=== PATIENT | female | born 1955 | race Two or more races ===

== ENCOUNTER 2018-12-01 21:55 | Observation (INO) | payer OTHER ==
[2018-12-01 22:08] VITALS: BMI 22.9
--- NOTE | 2018-12-02 00:16 | PDOC ---
History of Present Illness - General Chief Complaint: Chest Pain Stated Complaint: Revisit,Radiology Variance Time Seen by Provider: 12/02/18 00:03 - History of Present Illness Initial Comments: 12/02/18 00:15 62 yo F with h/o HTN, Vertigo, Migraines, who p/w chest pain. Patient reports 3 months of intermittent, sharp, left sided chest pain, with radiation to left arm /shoulder, and back. Pain is non exertional, and sporadic, lasting for seconds and resolving spontaneously. Occurs at rest and with movement. Also endorses intermittent lightheadedness. + Nausea without vomiting x 3 months. Patient seen at urgent care and told that she had "tortorous aorta." Patient denies JUNIOR, palpitations, cough, wheezing, leg swelling/pain, N/V, F,C, SOB, urinary complaints, abdominal pain, diarrhea, constipation, hematuria, BPR , lightheadedness, weakness, sensory changes. PMHx: as noted above. Denies h/o ACS/GA, stent placement, CABG, abnml stress test. Denies h/o PE/DVT. ROS: as noted SHx: Denies Etoh, IVDA, tobacco use. Allergies: NKDA Cardiology: Dr. Woody PMD: Solange Horne Past History - Past Medical History Allergies/Adverse Reactions: Allergies Allergy/AdvReac Type Severity Reaction Status Date / Time No Known Allergies Allergy Verified 12/01/18 22:08 Home Medications: Ambulatory Orders Amlodipine Besylate [Norvasc -] 10 mg PO DAILY 07/05/13 Metaxalone 400 mg PO TID 07/09/15 Metoclopramide HCl [Reglan] 10 mg PO TID #20 tablet 07/09/15 Metoprolol Succinate [Toprol XL -] 12.5 mg PO DAILY 07/09/15 Oxycodone HCl/Acetaminophen [Percocet 5/325 -] 1 tab PO Q6H #20 tablet 07/09/15 Pravastatin Sodium 20 mg PO DAILY 07/09/15 Sumatriptan Succinate [Imitrex -] 25 mg PO DAILY PRN 07/09/15 COPD: No HTN: Yes Hypercholesterolemia: Yes - Suicide/Smoking/Psychosocial Hx Smoking Status: No Smoking History: Never smoked Number of Cigarettes Smoked Daily: 0 Hx Alcohol Use: No Drug/Substance Use Hx: No Review of Systems - Review of Systems Comments:: 12/02/18 00:15 GENERAL/CONSTITUTIONAL: No fever or chills. No weakness. HEAD, EYES, EARS, NOSE AND THROAT: No change in vision. No ear pain or discharge. No sore throat. CARDIOVASCULAR: + chest pain. No shortness of breath RESPIRATORY: No cough, wheezing, or hemoptysis. GASTROINTESTINAL: No nausea, vomiting, diarrhea or constipation. GENITOURINARY: No dysuria, frequency, or change in urination. MUSCULOSKELETAL: No joint or muscle swelling or pain. No neck or back pain. SKIN: No rash NEUROLOGIC: No headache, vertigo, loss of consciousness, or change in strength/ sensation. ENDOCRINE: No increased thirst. No abnormal weight change HEMATOLOGIC/LYMPHATIC: No anemia, easy bleeding, or history of blood clots. ALLERGIC/IMMUNOLOGIC: No hives or skin allergy. *Physical Exam - Vital Signs Last Vital Signs Temp Pulse Resp BP Pulse Ox 98.0 F 116 H 18 160/89 98 12/01/18 22:04 12/01/18 22:04 12/01/18 22:04 12/01/18 22:04 12/01/18 22:04 - Physical Exam Comments: 12/02/18 00:16 GENERAL: Awake, alert, and fully oriented, in no acute distress HEAD: No signs of trauma, normocephalic, atraumatic EYES: PERRLA, EOMI, sclera anicteric, conjunctiva clear ENT: Hearing grossly normal, nares patent, oropharynx clear without exudates. Moist mucosa NECK: Normal ROM, supple, no lymphadenopathy, JVD, or masses LUNGS: No distress, speaks full sentences, clear to auscultation bilaterally HEART: Regular rate and rhythm, normal S1 and S2, no murmurs, rubs or gallops, peripheral pulses normal and equal bilaterally. ABDOMEN: + Epigastric ttp. Soft, nontender, normoactive bowel sounds. No guarding, no rebound. No masses. Neg CVA ttp. EXTREMITIES : Normal inspection, Normal range of motion, no edema. No clubbing or cyanosis. NEUROLOGICAL: Cranial nerves II through XII grossly intact. Normal speech, normal gait, no focal sensorimotor deficits SKIN: Warm, Dry, normal turgor, no rashes or lesions noted Moderate Sedation - Procedure Monitoring Vital Signs: Procedure Monitoring Vital Signs Temperature 98.0 F 12/01/18 22:04 Pulse Rate 116 H 12/01/18 22:04 Respiratory Rate 18 12/01/18 22:04 Blood Pressure 160/89 12/01/18 22:04 O2 Sat by Pulse Oximetry (%) 98 12/01/18 22:04 Heart Score/ECG Review - History History: Slightly suspicious - Electrocardiogram EKG: Non specific repolarization disturbance - Age Age: >/= 65 - Risk Factors Risk Factors Heart Score: Yes Hx Hypercholesterolemia, Yes Hx Hypertension, Yes Positive family hx of cardiac disease Based on the list above the patient has:: >/=3 risk factors or Hx atherosclerotic disease - Troponin Troponin: </= normal limit - Score Heart Score - Total: 5 ED Treatment Course - LABORATORY CBC & Chemistry Diagram: 12/02/18 00:49 12/02/18 00:49 Medical Decision Making - Medical Decision Making 12/02/18 01:18 62 yo F with h/o HTN, Vertigo, Migraines, who p/w 3 months of intermittent, sharp, left sided chest pain, with radiation to left arm/shoulder, and back. + intermittent lightheadedness, and nause w/out vomiting. Vitals wnl, AF, A&Ox3. ACS/GA r/o. Low risk PE Weils criteria. Will consider thoracic aorta aneurysm/ dissection, pericarditis, plerual effusion, pancreatitis, esophagitis, gastritis. ED Course: 12/02/18 01:21 EKG: NSR with absent BHUMI, STD. + LVH, and slight LAD. Absent Q waves, nml R wave progression. 12/02/18 02:47 CTA CHEST r/o Ao dissection CBC,CMP: Unremarkable Trop: Neg 12/02/18 02:50 Heart score 5 Plan to admit tele/obs. Elevated heart score. 12/02/18 04:52 Dr. Horne answering service contacted on second attempt. Awaiting call back. *DC/Admit/Observation/Transfer Diagnosis at time of Disposition: Chest pain at rest - Discharge Dispostion Condition at time of disposition: Stable Decision to Admit order: Yes - Referrals Referrals: Solange Horne MD [Primary Care Provider] - - Patient Instructions Printed Discharge Instructions: DI for Chest Pain Additional Instructions: Please return to the emergency department with any new or worsening symptoms or concerns. Please follow up with your primary care physician within 72 hours. - Post Discharge Activity - Attestations Physician Attestion: 12/02/18 00:16 I attest to the information provided in this note.
[2018-12-02 01:23] LABS: BASO % 0.1 % (0-2.0); HEMATOCRIT 39.2 % (32.4-45.2); HEMOGLOBIN 13.5 GM/dL (10.7-15.3); LYMPH % 12.5 % (8-40); MCH 28.2 pg (25.7-33.7); MCHC 34.3 g/dl (32.0-36.0); MEAN CELL VOLUME 82.2 fl (80-96); MEAN PLT VOLUME 8.1 fl (7.5-11.1); NEUT % 84.4 % (42.8-82.8); PLATELET COUNT 317 K/MM3 (134-434); RBC 4.77 M/mm3 (3.60-5.2); RDW 13.9 % (11.6-15.6); WHITE BLOOD COUNT 11.5 K/mm3 (4.0-10.0)
[2018-12-02 02:08] LABS: ALBUMIN 4.4 g/dl (3.4-5.0); ALK PHOS 102 U/L (45-117); ANION GAP 7 MMOL/L (8-16); BILIRUBIN,TOTAL 0.4 mg/dL (0.2-1); BLOOD UREA NITROGEN 11 mg/dL (7-18); CALCIUM 9.7 mg/dL (8.5-10.1); CHLORIDE 105 mmol/L (98-107); CO2 29 mmol/L (21-32); CREATININE 0.7 mg/dL (0.55-1.3); GLUCOSE,RANDOM 118 mg/dL (74-106); POTASSIUM 3.7 mmol/L (3.5-5.1); SGOT/AST 13 U/L (15-37); SGPT/ALT 25 U/L (13-61); SODIUM 141 mmol/L (136-145)
--- NOTE | 2018-12-02 02:47 | PDOC ---
Attending Attestation - ED Attending Attestation I have performed the following: I have examined & evaluated the patient, The case was reviewed & discussed with the resident, I agree w/resident's findings & plan - HPI HPI: 12/02/18 03:11 The patient is a year 62 old female, with a significant past medical history of HTN, vertigo, migraines, who presents to the emergency department with, 3 months of intermittent chest pain. She describes her pain as intermittent, left sided, sharp, and radiating to her left arm and back. Patient also notes the pain has an associated nausea and lightheadedness. She was recently seen by her agriculture extension specialist Dr. Parra who advised her to report to the ED for further evaluation. Allergies: NKA Past surgical history: None reported. Social history: Nonsmoker. Denies EtOH use and recreational drug use. Primary Care Physician: Dr. Horne Hot Knife Foxing Cutter: Dr. Parra <Marquita Gonzalez - Last Filed: 12/02/18 03:11> - Resident Resident Name: Justin Mcintyre - Physicial Exam PE: 12/02/18 03:18 Agree with resident exam - Medical Decision Making 12/02/18 03:18 62-year-old female for evaluation of chest pain Plan for CTA of the chest due to pain radiating to the back though clinically dissection is unlikely Patient will be admitted for observation to medical service for serial enzymes Impression left-sided chest pain <Laura Rizvi - Last Filed: 12/02/18 03:27> Attestations - Attestations 12/02/18 03:11 Documentation prepared by Marquita Gonzalez, acting as chief medical officer for Laura Rizvi DO. <Marquita Gonzalez - Last Filed: 12/02/18 03:11>
--- NOTE | 2018-12-02 05:18 | PDOC ---
*Physical Exam - Vital Signs Last Vital Signs Temp Pulse Resp BP Pulse Ox 98.0 F 116 H 18 160/89 98 12/01/18 22:04 12/01/18 22:04 12/01/18 22:04 12/01/18 22:04 12/01/18 22:04 - Physical Exam Comments: 12/02/18 05:10 Care endorsed to me by Dr. Mcintyre at the end of my shift. Patient is a 62 YOF who was originally seen at urgent care, sent to the ED by Dr. Parra (her plastics tooling engineer) for left chest pain and numbness. Initial cardiac w/u is negative , now pending chest CTA r/o aneurysmal pathology/dissection. Otherwise is stable. ED Treatment Course - LABORATORY CBC & Chemistry Diagram: 12/02/18 00:49 12/02/18 00:49 - ADDITIONAL ORDERS Additional order review: Laboratory Results 12/02/18 12/02/18 12/02/18 00:49 00:49 00:49 Sodium 141 Potassium 3.7 Chloride 105 Carbon Dioxide 29 Anion Gap 7 L BUN 11 Creatinine 0.7 Creat Clearance w eGFR > 60 Random Glucose 118 H Calcium 9.7 Total Bilirubin 0.4 AST 13 L ALT 25 Alkaline Phosphatase 102 Creatine Kinase 93 Troponin I 0.02 Total Protein 8.0 Albumin 4.4 Lipase 72 L 12/02/18 00:49 RBC 4.77 MCV 82.2 MCHC 34.3 RDW 13.9 MPV 8.1 Neutrophils % 84.4 H D Lymphocytes % 12.5 D Monocytes % 3.0 L Eosinophils % 0.0 D Basophils % 0.1 Medical Decision Making - Medical Decision Making 12/02/18 04:[address] Solange Horne's practice for admission. 12/02/18 05:[address] Solange Horne's practice for admission. 12/02/18 05:[address] Solange Horne's practice for admission. 12/02/18 05:58 Repeat EKG done 05:43 shows NSR, rate 80, normal axis and intervals, no ischemic ST-T changes, diffuse TW flattening 12/02/18 06:11 Another call was placed to Dr. Solange Horne, waited 40 min. Per ED protocol the admission will got to Yen. I spoke with Yen dominguez, patient admitted to Dr. Nettles. Decision to Admit order corrected. Patient still waiting for CTA (was brought over at 5:30 am but the scanner was broken at that point). seed technician is over in the ED now doing X-rays. *DC/Admit/Observation/Transfer Diagnosis at time of Disposition: Chest pain at rest - Discharge Dispostion Condition at time of disposition: Guarded Decision to Admit order: Yes - Referrals Referrals: Solange Horne MD [Primary Care Provider] - - Patient Instructions Printed Discharge Instructions: DI for Chest Pain Additional Instructions: Please return to the emergency department with any new or worsening symptoms or concerns. Please follow up with your primary care physician within 72 hours. - Post Discharge Activity
[2018-12-02] MEDS ORDERED: SUMAtriptan SUCCINATE 25 MG TABLET PO PRN (06:34)
--- NOTE | 2018-12-02 06:43 | HP ---
CHIEF COMPLAINT: PCP:Dr. Horne Cardiology: Dr. Love HISTORY OF PRESENT ILLNESS: 62 year old female with history of hypertension(on meds), hyperlipidemia, vertigo and migraines who presents to ER with complaints of chest heaviness at rest with radiation to her left arm and upper back which has been ongoing for the past 3 days. Chest pain is nonreproducible. She reports chest pain is associated with shortness of breath. She denies nausea, vomiting or diaphoresis. She reports she had a stress test 2 years ago and was told it was normal. She denies fever, hemoptysis, syncopy, dizziness or palpitations. In the ER two troponins are negative. EKG with no signs of acute ischemia (no acute st elevations or T wave inversions. CT scan of chest, abdomen and pelvis is pending. Upon presentation she had tacycardia. Currently she denies symptoms of chest discomfort and is nondyspneic. Oxygen saturation is normal. Recent Travel:Denies PAST MEDICAL HISTORY: Hypertension Hyperlipidemia Migraines Vertigo PAST SURGICAL HISTORY: Denies Social History: Smoking:Denies Alcohol:Denies Drugs: Denies Family History: Allergies No Known Allergies Allergy (Verified 12/01/18 22:08) HOME MEDICATIONS: Home Medications Medication Instructions Recorded Amlodipine Besylate [Norvasc -] 10 mg PO DAILY 07/05/13 Metaxalone 400 mg PO TID 07/09/15 Metoclopramide HCl [Reglan] 10 mg PO TID #20 tablet 07/09/15 Metoprolol Succinate [Toprol XL -] 12.5 mg PO DAILY 07/09/15 Oxycodone HCl/Acetaminophen 1 tab PO Q6H #20 tablet 07/09/15 [Percocet 5/325 -] Pravastatin Sodium 20 mg PO DAILY 07/09/15 Sumatriptan Succinate [Imitrex -] 25 mg PO DAILY PRN 07/09/15 REVIEW OF SYSTEMS CONSTITUTIONAL: Absent: fever, chills, diaphoresis, generalized weakness, malaise, loss of appetite, weight change HEENT: Absent: rhinorrhea, nasal congestion, throat pain, throat swelling, difficulty swallowing, mouth swelling, ear pain, eye pain, visual changes CARDIOVASCULAR: Absent: chest and back pain, syncope, palpitations, irregular heart rate, lightheadedness, peripheral edema RESPIRATORY: Absent: cough, shortness of breath, dyspnea with exertion, orthopnea, wheezing, stridor, hemoptysis GASTROINTESTINAL: Absent: abdominal pain, abdominal distension, nausea, vomiting, diarrhea, constipation, melena, hematochezia GENITOURINARY: Absent: dysuria, frequency, urgency, hesitancy, hematuria, flank pain, genital pain MUSCULOSKELETAL: Absent: myalgia, arthralgia, joint swelling, back pain, neck pain SKIN: Absent: rash, itching, pallor HEMATOLOGIC/IMMUNOLOGIC: Absent: easy bleeding, easy bruising, lymphadenopathy, frequent infections ENDOCRINE: Absent: unexplained weight gain, unexplained weight loss, heat intolerance, cold intolerance NEUROLOGIC: Absent: headache, focal weakness or paresthesias, dizziness, unsteady gait, seizure, mental status changes, bladder or bowel incontinence PSYCHIATRIC: Absent: anxiety, depression, suicidal or homicidal ideation, hallucinations. PHYSICAL EXAMINATION Vital Signs - 24 hr 12/01/18 12/02/18 22:04 02:05 Temperature 98.0 F Pulse Rate 116 H Pulse Rate [ 90 Apical] Respiratory 18 14 Rate Blood Pressure 160/89 Blood Pressure 150/86 [Right Arm] O2 Sat by Pulse 98 97 Oximetry (%) GENERAL: awake, alert, and fully oriented, in no acute distress HEAD: normal with no signs of trauma EYES: pupils equal, round and reactive to light, extraocular movements intact, sclera anicteric, conjunctiva clear EARS, NOSE, THROAT: ears normal, nares patent, oropharynx clear without exudates. Moist mucous membranes NECK: normal range of motion, supple without lymphadenopathy, JVD, or masses LUNGS: breath sounds equal, clear to auscultation bilaterally, no wheezes, and no crackles, no accessory muscle use HEART: regular rate and rhythm, normal S1 and S2 without murmur ABDOMEN: soft, nontender, not distended, normoactive bowel sounds MUSCULOSKELETAL: normal range of motion at all joints. No bony deformities or tenderness UPPER EXTREMITIES: 2+ pulses, warm, well-perfused. No cyanosis. No clubbing. No peripheral edema LOWER EXTREMITIES: 2+ pulses, warm, well-perfused. No calf tenderness. No peripheral edema NEUROLOGICAL: normal speech. Normal gait PSYCHIATRIC: cooperative. Good eye contact. Appropriate mood and affect SKIN: Warm, dry, normal turgor, no rashes or lesions noted, normal capillary refill Laboratory Results - last 24 hr 12/02/18 12/02/18 12/02/18 00:49 00:49 00:49 WBC 11.5 H RBC 4.77 Hgb 13.5 Hct 39.2 MCV 82.2 MCH 28.2 MCHC 34.3 RDW 13.9 Plt Count 317 MPV 8.1 Absolute Neuts (auto) 9.7 H Neutrophils % 84.4 H D Lymphocytes % 12.5 D Monocytes % 3.0 L Eosinophils % 0.0 D Basophils % 0.1 Nucleated RBC % 0 Sodium 141 Potassium 3.7 Chloride 105 Carbon Dioxide 29 Anion Gap 7 L BUN 11 Creatinine 0.7 Creat Clearance w eGFR > 60 Random Glucose 118 H Calcium 9.7 Total Bilirubin 0.4 AST 13 L ALT 25 Alkaline Phosphatase 102 Creatine Kinase 93 Troponin I 0.02 Total Protein 8.0 Albumin 4.4 Lipase 12/02/18 12/02/18 00:49 04:40 WBC RBC Hgb Hct MCV MCH MCHC RDW Plt Count MPV Absolute Neuts (auto) Neutrophils % Lymphocytes % Monocytes % Eosinophils % Basophils % Nucleated RBC % Sodium Potassium Chloride Carbon Dioxide Anion Gap BUN Creatinine Creat Clearance w eGFR Random Glucose Calcium Total Bilirubin AST ALT Alkaline Phosphatase Creatine Kinase Troponin I 0.03 Total Protein Albumin Lipase 72 L ASSESSMENT/PLAN: 62 year old female with history of hypertension(on medications), hyperlipidemia , vertigo and migraines who presents with symptoms of chest heaviness at rest with radiation to her left arm and upper back which has been ongoing for the past 3 days associated with shortness of breath. She denied fever, hemoptysis, syncopy, dizziness or palpitations. On presentation to ER she had tachycardia. Atypical Chest Pain Two troponins are negative. EKG with no signs of acute ischemia (no acute st elevations or T wave inversions). CT scan of chest, abdomen and pelvis is pending to exclude aortic aneurysm/ hypertensive. Upon presentation she had tacycardia. Cxygen saturation is normal. Currently she denies symptoms of chest discomfort and is nondyspneic. Will add D-Dimer. Continue to trend troponins. Echocardiogram ordered to evaluate wall motion, valvular anatomy and LV function. Cardiology consulted - Dr. Love. Hypertension Hypertensive in ER. Continue metoprolol and amlodipine. Continue to monitor closely and adjust antihypertensives as needed. Hyperlipidemia Continue statin therapy. Mild Leukocytois with abnormal differential Patient remains afebrile. Check UA with urine culture. Patient currently denies chills or cough. Migraine Headaches Asymptomatic. Continue with sumetriptan. Visit type - Emergency Visit Emergency Visit: Yes ED Registration Date: 12/02/18 Care time: The patient presented to the Emergency Department on the above date and was hospitalized for further evaluation of their emergent condition. - New Patient This patient is new to me today: Yes Date on this admission: 12/02/18 - Critical Care Critical Care patient: No
--- NOTE | 2018-12-02 09:28 | CON.CARD ---
Consult Consult Specialty:: Cardiology Referred by:: Dr. Porter Reason for Consultation:: chest pain - History of Present Illness Chief Complaint: chest pain History of Present Illness: 62 yo F with h/o HTN, Vertigo, Migraines, who p/w chest pain. Patient reports 3 months of intermittent, sharp, left sided chest pain, with radiation to left arm /shoulder, and back. Pain is non exertional, and sporadic, lasting for seconds and resolving spontaneously. Occurs at rest and with movement. Also endorses intermittent lightheadedness. + Nausea without vomiting x 3 months. Patient seen at urgent care and told that she had "tortorous aorta." Patient denies JUNIOR, palpitations, cough, wheezing, leg swelling/pain, N/V, F,C, SOB, urinary complaints, abdominal pain, diarrhea, constipation, hematuria, BPR , lightheadedness, weakness, sensory changes. She had a stat CTA chest and abdomen in ER which showed no aneurysm, no dissection. Chronic lung nodule and atelectasis. Two sets of cardiac enzymes are negative. ECG showed NSR at 80bpm w/ LAE, no acute changes. - History Source History Provided By: Patient Limitations to Obtaining History: No Limitations - Past Medical History Cardio/Vascular: Yes: HTN, Hyperlipdemia Pulmonary: No: Asthma, Bronchitis, Cancer, COPD, O2 Dependent, Pneumonia, Previously Intubated, Pulmonary Embolus, Pulmonary Fibrosis, Sleep Apnea, Other Gastrointestinal: No: Ascites, Cancer, Constipation, Crohn's Disease, Diverticulitis, Diverticulosis, Esophageal Varices, Gastritis, GERD, GI Bleed, Hemorrhoids, Hiatal Hernia, Inflamatory Bowel Disease, Irritable Bowel Disease, Pancreatitis, Peptic Ulcer Disease, Ulcerative Colitis, Other Hepatobiliary: No: Cirrhosis, Cholelithiasis, Cholecystitis, Choledocholithiasis , Hepatitis A, Hepatitis B, Hepatitis C, Other Renal/: No: Renal Failure, Renal Inusuff, BPH, Cancer, Hematuria, Hemodialysis , Neurogenic Bladder, Renal Calculi, UTI, Other Reproductive: No: Ectopic , Endometriosis, Fibroids, PID, Polycystic Ovary Syndrome, Postmenopausal, Other - Alcohol/Substance Use Hx Alcohol Use: No - Smoking History Smoking history: Never smoked Aproximately how many cigarettes per day: 0 - Social History Usual Living Arrangement: With Spouse History of Recent Travel: No Home Medications - Allergies Allergies/Adverse Reactions: Allergies Allergy/AdvReac Type Severity Reaction Status Date / Time No Known Allergies Allergy Verified 12/01/18 22:08 - Home Medications Home Medications: Ambulatory Orders Amlodipine Besylate [Norvasc -] 10 mg PO DAILY 07/05/13 Metaxalone 400 mg PO TID 07/09/15 Metoclopramide HCl [Reglan] 10 mg PO TID #20 tablet 07/09/15 Metoprolol Succinate [Toprol XL -] 12.5 mg PO DAILY 07/09/15 Oxycodone HCl/Acetaminophen [Percocet 5/325 -] 1 tab PO Q6H #20 tablet 07/09/15 Pravastatin Sodium 20 mg PO DAILY 07/09/15 Sumatriptan Succinate [Imitrex -] 25 mg PO DAILY PRN 07/09/15 Family Disease History - Family Disease History Family History: Unremarkable Review of Systems Findings/Remarks: see HPI - Review of Systems Constitutional: reports: No Symptoms Eyes: reports: No Symptoms HENT: reports: No Symptoms Neck: reports: No Symptoms Cardiovascular: reports: Chest Pain Respiratory: reports: SOB on Exertion Gastrointestinal: reports: No Symptoms Genitourinary: reports: No Symptoms Breasts: reports: No Symptoms Reported Musculoskeletal: reports: No Symptoms Integumentary: reports: No Symptoms Neurological: reports: No Symptoms Endocrine: reports: No Symptoms Hematology/Lymphatic: reports: No Symptoms Psychiatric: reports: No Symptoms - Risk Factors Known Risk Factors: Yes: Hypercholesterolemia, Hypertension Vital Signs: Vital Signs Temperature 98.0 F 12/01/18 22:04 Pulse Rate 88 12/02/18 08:12 Respiratory Rate 16 12/02/18 08:12 Blood Pressure 145/87 12/02/18 08:12 O2 Sat by Pulse Oximetry (%) 100 12/02/18 08:12 Constitutional: Yes: No Distress, Calm Eyes: Yes: Conjunctiva Clear, EOM Intact HENT: Yes: Atraumatic, Normocephalic Neck: Yes: Trachea Midline Respiratory: Yes: CTA Bilaterally Gastrointestinal: Yes: Soft (NT, no aortic enlargement) Cardiovascular: Yes: Regular Rate and Rhythm JVD: No Carotid Bruit: No PMI: Non-Displaced Heart Sounds: Yes: S1, S2 Edema: No Neurological: Yes: Alert, Oriented - Other Data Labs, Other Data: CBC, BMP 12/02/18 00:49 12/02/18 00:49 Troponin, BNP 12/02/18 12/02/18 00:49 04:40 Troponin I 0.02 0.03 Troponin, BNP 12/02/18 12/02/18 00:49 04:40 Troponin I 0.02 0.03 Laboratory Tests 12/02/18 12/02/18 12/02/18 00:49 00:49 00:49 WBC 11.5 H Hgb 13.5 Plt Count 317 D-Dimer Sodium 141 Potassium 3.7 Creatinine 0.7 Troponin I 0.02 12/02/18 12/02/18 04:40 07:20 WBC Hgb Plt Count D-Dimer 396 Sodium Potassium Creatinine Troponin I 0.03 NSR 80 bpm, LAE, no acute changes Echo: Pending Imaging - Results Cat Scan: Image Reviewed EKG: Image Reviewed Problem List - Problems (1) Atypical chest pain Code(s): R07.89 - OTHER CHEST PAIN (2) Hypertension Code(s): I10 - ESSENTIAL (PRIMARY) HYPERTENSION Qualifiers: Hypertension type: essential hypertension Qualified Code(s): I10 - Essential (primary) hypertension (3) Combined hyperlipidemia Code(s): E78.2 - MIXED HYPERLIPIDEMIA Assessment/Plan IMP: Atypical CP HTN, chronic Hyperlipidemia REC: 1. MAURO 2. Echo 3. Tele 4. Stress MPI in AM
--- NOTE | 2018-12-02 11:56 | EKG ---
Test Reason : Blood Pressure : / mmHG Vent. Rate : 087 BPM Atrial Rate : 087 BPM P-R Int : 118 ms QRS Dur : 076 ms QT Int : 344 ms P-R-T Axes : 058 -05 002 degrees QTc Int : 413 ms NORMAL SINUS RHYTHM POSSIBLE LEFT ATRIAL ENLARGEMENT LEFT VENTRICULAR HYPERTROPHY NONSPECIFIC T WAVE ABNORMALITY ABNORMAL ECG WHEN COMPARED WITH ECG OF 09-JUL-2015 07:34, INVERTED T WAVES HAVE REPLACED NONSPECIFIC T WAVE ABNORMALITY IN INFERIOR LEADS NONSPECIFIC T WAVE ABNORMALITY NO LONGER EVIDENT IN LATERAL LEADS Confirmed by JOE ABURTO MD ([id number]) on 12/02/2018 11:56:08 AM Referred By: Confirmed By:JOE ABURTO MD
--- NOTE | 2018-12-02 11:56 | EKG ---
Test Reason : Blood Pressure : / mmHG Vent. Rate : 080 BPM Atrial Rate : 080 BPM P-R Int : 120 ms QRS Dur : 080 ms QT Int : 392 ms P-R-T Axes : 062 003 017 degrees QTc Int : 452 ms NORMAL SINUS RHYTHM POSSIBLE LEFT ATRIAL ENLARGEMENT NONSPECIFIC T WAVE ABNORMALITY ABNORMAL ECG WHEN COMPARED WITH ECG OF 02-DEC-2018 00:55, NO SIGNIFICANT CHANGE WAS FOUND Confirmed by CRISELDA LAWRENCE, JOE ([id number]) on 12/02/2018 11:55:47 AM Referred By: Confirmed By:JOE ABURTO MD
[2018-12-02] MEDS: amLODIPine BESYLATE 10 MG TABLET (FP) PO SCH (12:00)
--- NOTE | 2018-12-02 12:54 | ECHO ---
Name: TISH MURPHY Exam:Adult Echocardiogram Study Date: 12/02/2018 09:31 AM Age: 62 yrs Height: 58 in Weight: 110 lb BSA: 1.4 m2 MMode/2D Measurements & Calculations IVSd: 0.89 cm Ao root diam: 2.7 cm LVIDd: 3.6 cm LA dimension: 2.2 cm LVIDs: 2.0 cm LVPWd: 0.81 cm EDV(Teich): 55.7 ml ESV(Teich): 12.3 ml Doppler Measurements & Calculations MV E max gallito: 57.2 cm/sec AI P1/2t: 1372 msec MV A max gallito: 77.1 cm/sec MV E/A: 0.74 MV dec time: 0.09 sec AI max gallito: 224.0 cm/sec TR max gallito: 197.3 cm/sec AI max P.1 mmHg TR max P.8 mmHg AI dec slope: 47.8 cm/sec2 PI Vmax: 179.2 cm/sec Procedure A complete two-dimensional transthoracic echocardiogram was performed (2D, M-mode, Doppler and color flow Doppler). Left Ventricle The left ventricular size, thickness and function are normal. The left ventricular ejection fraction is normal. Ejection Fraction = 60-65%. The left ventricular wall motion is normal. Right Ventricle The right ventricle is normal in size and function. Atria Normal left and right atrial size and function. Mitral Valve There is trace mitral regurgitation. Tricuspid Valve There is trace tricuspid regurgitation. There was insufficient TR detected to calculate RV systolic p ressure. Aortic Valve No hemodynamically significant valvular aortic stenosis. No aortic regurgitation is present. Pulmonic Valve Trace pulmonic valvular regurgitation. Great Vessels The aortic root is normal size. Pericardium/Pleura There is no pericardial effusion. Interpretation Summary The left ventricular size, thickness and function are normal The right ventricle is normal in size and function. There is trace mitral regurgitation. There is trace tricuspid regurgitation. Trace pulmonic valvular regurgitation. MD Michael Swenson 12/02/2018 12:54 PM
[2018-12-02] MEDS: metoPROLOL SUCCINATE 25 MG TAB.SR.24H (FP) PO SCH (14:05)
[2018-12-02] MEDS ORDERED: ATORVASTATIN CA 10 MG TABLET (FP) PO SCH (22:00)
[2018-12-02 23:23] LABS: URINE APPEARANCE CLEAR; URINE BILIRUBIN NEGATIVE (<2.0 mg/dL); URINE COLOR COLORLESS; URINE GLUCOSE (UA) NEGATIVE (NEGATIVE); URINE KETONE NEGATIVE (NEGATIVE); URINE LEUK ESTERASE NEGATIVE (NEGATIVE); URINE NITRITE NEGATIVE (NEGATIVE); URINE PROTEIN NEGATIVE (NEGATIVE); URINE UROBILINOGEN NEGATIVE mg/dL (0.2-1.0)
[2018-12-02] MEDS ORDERED: ALBUTEROL SO4 8 GM HFA INHALER IH PRN (23:42)
[2018-12-03 05:46] VITALS: TEMP 97.9
[2018-12-03 07:59] LABS: BASO % 0.4 % (0-2.0); EOS % 3.7 % (0-4.5); HEMATOCRIT 38.4 % (32.4-45.2); HEMOGLOBIN 13.2 GM/dL (10.7-15.3); LYMPH % 31.7 % (8-40); MCH 28.6 pg (25.7-33.7); MCHC 34.5 g/dl (32.0-36.0); MEAN PLT VOLUME 7.9 fl (7.5-11.1); MONO % 5.4 % (3.8-10.2); NEUT % 58.8 % (42.8-82.8); PLATELET COUNT 318 K/MM3 (134-434); RBC 4.63 M/mm3 (3.60-5.2); WHITE BLOOD COUNT 9.5 K/mm3 (4.0-10.0)
[2018-12-03 08:15] LABS: CHOLESTEROL 196 mg/dL (50-200); HDL CHOLESTEROL 47 mg/dL (40-60); TRIGLYCERIDES 230 mg/dL (0-150)
--- NOTE | 2018-12-03 08:38 | PN ---
Progress Note, Physician Chief Complaint: feels well No CP TELE: NSR Echo reviewed, normal LV fx, no effusion History of Present Illness: BP controlled - Current Medication List Current Medications: Active Medications Albuterol Sulfate (Ventolin Hfa Inhaler -) 2 puff IH Q4H PRN PRN Reason: SHORT OF BREATH/WHEEZING Amlodipine Besylate (Norvasc -) 10 mg PO DAILY [facility] Last Admin: 12/02/18 12:00 Dose: Not Given Atorvastatin Calcium (Lipitor -) 10 mg PO HS [facility] Last Admin: 12/02/18 21:42 Dose: 10 mg Doxycycline Hyclate (Vibramycin -) 100 mg PO BID@1000,1800 [facility] Metoprolol Succinate (Toprol Xl -) 12.5 mg PO DAILY [facility] Last Admin: 12/02/18 14:05 Dose: Not Given Prednisone (Deltasone -) 20 mg PO DAILY [facility] Sumatriptan Succinate (Imitrex -) 25 mg PO DAILY PRN PRN Reason: migraine - Objective Vital Signs: Vital Signs Temperature 97.9 F 12/03/18 05:45 Pulse Rate 95 H 12/03/18 05:45 Respiratory Rate 18 12/03/18 08:35 Blood Pressure 143/72 12/03/18 05:45 O2 Sat by Pulse Oximetry (%) 98 12/03/18 08:35 Constitutional: Yes: Calm Cardiovascular: Yes: Regular Rate and Rhythm Respiratory: Yes: CTA Bilaterally Gastrointestinal: Yes: Soft (NT) Edema: No Neurological: Yes: Alert, Oriented Labs: CBC, BMP 12/03/18 06:45 12/02/18 00:49 Laboratory Tests 12/02/18 12/02/18 12/02/18 00:49 04:40 07:20 WBC Hgb Plt Count D-Dimer Troponin I 0.02 0.03 0.02 Total LDL Cholesterol 12/02/18 12/03/18 12/03/18 07:20 06:45 06:45 WBC 9.5 Hgb 13.2 Plt Count 318 D-Dimer 396 Troponin I Total LDL Cholesterol 116 H - ....Imaging EKG: Image Reviewed Problem List - Problems (1) Atypical chest pain Code(s): R07.89 - OTHER CHEST PAIN (2) Hypertension Code(s): I10 - ESSENTIAL (PRIMARY) HYPERTENSION Qualifiers: Hypertension type: essential hypertension Qualified Code(s): I10 - Essential (primary) hypertension (3) Combined hyperlipidemia Code(s): E78.2 - MIXED HYPERLIPIDEMIA Assessment/Plan IMP: Atypical CP HTN, chronic Hyperlipidemia REC: Stress MPI today If negative, d/c home later today
--- NOTE | 2018-12-03 08:47 | PN ---
Progress Note, Physician Chief Complaint: C/O cough - Current Medication List Current Medications: Active Medications Albuterol Sulfate (Ventolin Hfa Inhaler -) 2 puff IH Q4H PRN PRN Reason: SHORT OF BREATH/WHEEZING Amlodipine Besylate (Norvasc -) 10 mg PO DAILY [facility] Last Admin: 12/02/18 12:00 Dose: Not Given Atorvastatin Calcium (Lipitor -) 10 mg PO HS [facility] Last Admin: 12/02/18 21:42 Dose: 10 mg Doxycycline Hyclate (Vibramycin -) 100 mg PO BID@1000,1800 [facility] Metoprolol Succinate (Toprol Xl -) 12.5 mg PO DAILY [facility] Last Admin: 12/02/18 14:05 Dose: Not Given Prednisone (Deltasone -) 20 mg PO DAILY [facility] Sumatriptan Succinate (Imitrex -) 25 mg PO DAILY PRN PRN Reason: migraine - Objective Vital Signs: Vital Signs Temperature 97.9 F 12/03/18 05:45 Pulse Rate 95 H 12/03/18 05:45 Respiratory Rate 18 12/03/18 08:35 Blood Pressure 143/72 12/03/18 05:45 O2 Sat by Pulse Oximetry (%) 98 12/03/18 08:35 Constitutional: Yes: Well Nourished, No Distress Eyes: Yes: Conjunctiva Clear, Ptosis HENT: Yes: Atraumatic Neck: Yes: Supple Cardiovascular: Yes: Regular Rate and Rhythm, S1, S2. No: Gallop, Murmur, Rub Respiratory: Yes: Regular, Wheezes Edema: No Peripheral Pulses: Left Doralis Pedis: 1+, Right Dorsalis Pedis: 1+ Neurological: Yes: Alert, Oriented. No: Aphasia ...Motor Strength: WNL, LUE, LLE, RUE Labs: CBC, BMP 12/03/18 06:45 12/02/18 00:49 Problem List - Problems (1) Atypical chest pain Code(s): R07.89 - OTHER CHEST PAIN (2) Hypertension Assessment/Plan: Patient presenting atypical CP serial Ce and EKG are -ve NST normal will f/u cardiology recommendations cont current meds Code(s): I10 - ESSENTIAL (PRIMARY) HYPERTENSION Qualifiers: Hypertension type: essential hypertension Qualified Code(s): I10 - Essential (primary) hypertension (3) Combined hyperlipidemia Assessment/Plan: cont current lipid lowering Code(s): E78.2 - MIXED HYPERLIPIDEMIA (4) Reactive airway disease Assessment/Plan: add Po prednisone Doxy and albuterol MDI Code(s): J45.909 - UNSPECIFIED ASTHMA, UNCOMPLICATED
[2018-12-03] MEDS ORDERED: REGADENOSON 0.4 MG/5 ML PRE-FILLED SYRINGE IVPUSH ONE ×2 (09:15→10:06)
[2018-12-03] MEDS: amLODIPine BESYLATE 10 MG TABLET (FP) PO SCH (09:59)
[2018-12-03] MEDS: metoPROLOL SUCCINATE 25 MG TAB.SR.24H (FP) PO SCH (09:59)
[2018-12-03] MEDS ORDERED: DOXYCYCLINE HYCLATE 100 MG CAPSULE PO SCH (10:00)
[2018-12-03] MEDS ORDERED: predniSONE 20 MG TABLET (UD) PO SCH (10:00)
[2018-12-03 11:07] VITALS: BP 127/77; PULSE 78
== END 2018-12-03 14:13 | disposition home or self-care (01) ==
LOC: JER 21:55 → JERBED 12-02 02:52 → J4W 12-02 14:09
PROVIDERS: ADMIT Internal Medicine; ATTEND Internal Medicine
PROC: 3E033GC Introduction of Other Therapeutic Substance into Peripheral Vein, Percutaneous Approach (ICD-10-PCS; principal; 2018-12-02)
DX: R07.89 Other chest pain (principal); I10 Essential (primary) hypertension; E78.2 Mixed hyperlipidemia; G43.909 Migraine, unspecified, not intractable, without status migrainosus; D72.829 Elevated white blood cell count, unspecified; J45.909 Unspecified asthma, uncomplicated
CPT/HCPCS: 36415; 71045-TC-FY; 71275-TC; 74177-TC; 78452-TC; 80053; 80061; 81003; 81015; 82550; 83690; 83721; 84484; 85025; 85027; 85379; 87086; 93005; 93010; 93017; 93306-TC; 99285-25; A9502; G0378; J2785

== ENCOUNTER 2021-08-12 16:01 | Emergency (ER) | payer OTHER ==
[2021-08-12 16:20] VITALS: BP 132/87; PULSE 83; TEMP 98.3; BMI 22.6
[2021-08-12] MEDS ORDERED: KETOROLAC TROMETHAMINE 30 MG/1 ML VIAL IM ONE (17:31)
[2021-08-12] MEDS ORDERED: CYCLOBENZAPRINE HCL 10 MG TABLET (FP) PO ONE (17:31)
[2021-08-12] MEDS ORDERED: KETOROLAC TROMETHAMINE 30 MG/1 ML VIAL ONE (17:36)
[2021-08-12] MEDS ORDERED: CYCLOBENZAPRINE HCL 10 MG TABLET (FP) ONE (17:36)
== END 2021-08-12 18:55 | disposition home or self-care (01) ==
LOC: JERFT 16:01
PROC: 3E023GC Introduction of Other Therapeutic Substance into Muscle, Percutaneous Approach (ICD-10-PCS; principal; 2021-08-12)
DX: M54.41 Lumbago with sciatica, right side (principal)
CPT/HCPCS: 96372; 99284-25

== ENCOUNTER → 2023-06-16 | Day surgery (SDC) | payer OTHER | END | disposition home or self-care (01) | LOC: JRADIR 09:44 | PROVIDERS: ATTEND Internal Medicine | PROC: 0G9G3ZX Drainage of Left Thyroid Gland Lobe, Percutaneous Approach, Diagnostic (ICD-10-PCS; principal; 2023-06-16) | DX: E04.1 Nontoxic single thyroid nodule (principal) | CPT/HCPCS: 10005; 76942; 88173; 88305-TC ==